=== PATIENT | female | born 1950 | race Caucasian/White ===

== ENCOUNTER → 2017-12-05 | Outpatient (CLI) | payer OTHER ==
[~2017-12-05] MED LIST: ACET-1256 PO; ASPI81TA28 PO; CHERRY PACK PO; CITA20TA4 PO; MORP15TA19 PO; OXYC1TAB3 PO; PRLSR20 PO; SENN-61 PO; VALS160T60 PO
--- NOTE | 2017-12-05 14:45 | DIAGNOSTIC IMAGING REPORT ---
BONE SCAN 3 PHASE LIMITED CLINICAL HISTORY: Bilateral knee pain. Possible prosthetic loosening COMPARISON STUDY: Conventional radiographic study dated 02/09/2016, and 01/05/2016 FINDINGS: The patient was injected with 26.3 mCi of technetium 99m MDP. Immediate flow sequence was performed centered on the knees. Flow appeared symmetric. Blood pool images appeared symmetric. Three-hour delayed images of both knees were acquired. There is symmetric increased patellar activity. There is minimal increased activity medially beneath the tibial component. This appears symmetric. The findings are felt to be postsurgical. There are no findings to indicate infection or loosening. IMPRESSION: Bilateral knee prostheses. No scintigraphic evidence of infection or loosening. Electronically signed by: Ranjan Melgoza M.D. 12/05/2017 2:44 PM Dictated Date/Time: 12/05/2017 2:41 PM
== END | disposition home or self-care (01) ==
LOC: C.NUCL 10:58
PROVIDERS: ATTEND Orthopaedic Surgery
DX: Z96.653 Presence of artificial knee joint, bilateral (principal)